=== PATIENT | female | born 1975 | race Caucasian/White ===

== ENCOUNTER 2017-12-05 22:26 | Emergency (ER) | payer SELFPAY ==
[2017-12-05] MEDS ORDERED: NACL 0.9% 1000 ML 1,000 ML IV ONE (22:50)
[2017-12-05] MEDS ORDERED: PEPCID IV ONE (22:51)
[2017-12-05] MEDS ORDERED: PROVENTIL IH ONE (22:51)
--- NOTE | 2017-12-05 22:56 | Emergency Department Report ---
ED Allergic Reaction HPI - General Chief complaint: Allergic Reaction Stated complaint: POSSIBLE ALLERGIC REACTION Time Seen by Provider: 12/05/17 22:46 Source: patient Mode of arrival: Ambulatory Limitations: Language Barrier - History of Present Illness Initial Comments: Patient is 42 years old female brought to the ER for evaluation of sudden onset of allergic reaction that is started while she was eating meats. Patient has been also stated that they found ants on the floor and it might be the reason for her allergic reaction. Patient presented with generalized itching and rash and difficulty breathing. Patient denied any difficulty swallowing. MD Complaint: allergic reaction, hives -: This evening Exposure: insect bite Symptoms: rash, itching, difficulty breathing Treatment Prior to Arrival: benadryl - Related Data Allergies Allergy/AdvReac Type Severity Reaction Status Date / Time codeine Allergy Itching Verified 12/05/17 22:44 ED Review of Systems ROS: Stated complaint: POSSIBLE ALLERGIC REACTION Other details as noted in HPI Comment: All other systems reviewed and negative Constitutional: denies: chills, fever Respiratory: shortness of breath. denies: cough, SOB with exertion, SOB at rest Cardiovascular: denies: chest pain, palpitations, dyspnea on exertion Gastrointestinal: denies: abdominal pain, nausea, vomiting, diarrhea, constipation, hematemesis, melena, hematochezia Genitourinary: denies: urgency, dysuria, frequency, hematuria Skin: rash, pruritus. denies: lesions, change in color, change in hair/nails Neurological: denies: headache, weakness, numbness, paresthesias, confusion ED Past Medical Hx - Past Medical History Previous Medical History?: No - Surgical History Past Surgical History?: No - Social History Smoking Status: Never Smoker Substance Use Type: None ED Physical Exam - General Limitations: Language Barrier General appearance: alert, anxious - Head Head exam: Present: atraumatic, normocephalic, normal inspection - Eye Eye exam: Present: normal appearance - ENT ENT exam: Present: normal exam, normal orophraynx, mucous membranes moist - Neck Neck exam: Present: normal inspection, full ROM. Absent: tenderness, meningismus, lymphadenopathy, thyromegaly - Respiratory Respiratory exam: Present: normal lung sounds bilaterally. Absent: respiratory distress, wheezes, rales, rhonchi, stridor, accessory muscle use, decreased breath sounds, prolonged expiratory - Cardiovascular Cardiovascular Exam: Present: regular rate, normal rhythm, normal heart sounds - GI/Abdominal GI/Abdominal exam: Present: soft, normal bowel sounds. Absent: distended, tenderness, guarding, rebound, rigid, organomegaly, mass, bruit, pulsatile mass , hernia - Extremities Exam Extremities exam: Present: normal inspection, full ROM, normal capillary refill - Back Exam Back exam: Present: normal inspection, full ROM. Absent: tenderness, CVA tenderness (R), CVA tenderness (L), paraspinal tenderness - Neurological Exam Neurological exam: Present: alert, oriented X3, CN II-XII intact, normal gait - Skin Skin exam: Present: warm, intact, rash, erythema. Absent: cyanosis, diaphoretic , urticaria, vesicles, petechiae, pallor, abrasion, ecchymosis ED Course Vital Signs 12/05/17 12/05/17 12/06/17 22:31 23:01 00:00 Temperature 97.8 F Pulse Rate 98 H Respiratory 18 Rate Blood Pressure 124/71 118/65 116/64 O2 Sat by Pulse 100 99 100 Oximetry 12/06/17 00:09 Temperature Pulse Rate Respiratory Rate Blood Pressure 116/64 O2 Sat by Pulse 100 Oximetry - Reevaluation(s) Reevaluation #1: 12/06/17 00:44 Patient stated that she is feeling much better. No itching and rash completely disappeared now. Patient denied any difficulty breathing or swallowing. Reevaluation #2: 12/06/17 03:35 Patient stated that she is feeling much better and she is ready to go home. I advised the patient will always her primary care physician in the next 2-3 days and to return to the ER if her symptoms get worse. ED Medical Decision Making - Lab Data Result diagrams: 12/05/17 22:57 12/05/17 22:57 Critical care attestation.: If time is entered above; I have spent that time in minutes in the direct care of this critically ill patient, excluding procedure time. ED Disposition Clinical Impression: Acute allergic reaction Disposition: DC-01 TO HOME OR SELFCARE Is pt being admited?: No Condition: Stable Instructions: Urticaria (ED), Allergies (ED) Referrals: PRIMARY CARE,MD [Primary Care Provider] - 3-5 Days
[2017-12-05 23:09] LABS: Mean Corpuscular HGB Conc 30 % (30-34); Platelet Count 282 K/mm3 (140-440); Red Blood Count 4.84 M/mm3 (3.65-5.03); Red Cell Distribution Width 19.3 % (13.2-15.2)
[2017-12-05 23:26] LABS: BUN/Creatinine Ratio 23; Blood Urea Nitrogen 16 mg/dL (7-17); Calcium 8.8 mg/dL (8.4-10.2); Hemolysis Index 25
[2017-12-05 23:37] LABS: Hematocrit 29.6 % (30.3-42.9); Hemoglobin 8.9 gm/dl (10.1-14.3); Mean Corpuscular Hemoglobin 18 pg (28-32); Mean Corpuscular Volume 62 fl (79-97)
[2017-12-06 01:19] LABS: Band Neutrophils # (Manual) 0.1 K/mm3; Basophils % (Manual) 0 % (0.0-1.8); Hypochromasia 2+; Platelet Estimate Consistent w Auto; Promyelocytes # (Manual) 0.1 K/mm3; Total Cells Counted 100
[2017-12-06 04:22] VITALS: BP 107/62
== END 2017-12-06 03:40 | disposition home or self-care (01) ==
LOC: ED 22:26
DX: T78.40XA Allergy, unspecified, initial encounter (principal); Z88.5 Allergy status to narcotic agent
CPT/HCPCS: 36415; 80048; 85007; 85025; 96374; 96375; 99284; J2930; J7030

== ENCOUNTER 2020-05-17 17:13 | Emergency (ER) | payer MEDICAID ==
[2020-05-17] MEDS ORDERED: ACETAMINOPHEN 325 MG TAB PO ONE (19:05)
[2020-05-17] MEDS ORDERED: SODIUM CHLORIDE 0.9% 1000 ML 1,000 ML IV ONE (19:05)
--- NOTE | 2020-05-17 19:18 | Event Note ---
ED Screening Note Date of service: 05/17/20 Time: 19:07 ED Screening Note: 44-year-old female presents to the emergency room with abdominal pain fever headache nausea weakness and body aches. Patient tested positive for Covid on Monday and seems to have gotten worse. This initial assessment/diagnostic orders/clinical plan/treatment(s) is/are subject to change based on patients health status, clinical progression and re- assessment by fellow clinical providers in the ED. Further treatment and workup at subsequent clinical providers discretion. Patient/guardian urged not to elope from the ED as their condition may be serious if not clinically assessed and managed. Initial orders include:
[2020-05-17] MEDS ORDERED: ACETAMINOPHEN 500 MG TAB PO ONE (19:27)
[2020-05-17] MEDS ORDERED: ONDANSETRON 4 MG/2 ML INJ IV ONE (19:27)
[2020-05-17] MEDS ORDERED: dexAMETHasone 20 MG/5 ML VIAL IV ONE (19:27)
--- NOTE | 2020-05-17 19:38 | Emergency Department Report ---
ED General Adult HPI - General Chief complaint: Abdominal Pain Stated complaint: STOMACH PAIN/FEVER PUI?: Yes Time Seen by Provider: 05/17/20 19:18 Source: patient, family, RN notes reviewed Mode of arrival: Ambulatory Limitations: Language Barrier (Patient request that family/friend translate. This provider is conversant in Romanian) - History of Present Illness Initial comments: The patient was evaluated in the emergency department for symptoms described in the history of present illness. He/she was evaluated in the context of the global COVID-19 pandemic, which necessitated consideration that the patient might be at risk for infection with the virus that causes COVID-19. Institutional protocols and algorithms that pertain to the evaluation of patients at risk for COVID-19 are in a state of rapid change based on in formation released by regulatory bodies including the CDC and federal and state organizations. These policies and algorithms were followed during the patient's care in the emergency department. Please note that these policies, procedures and recommendations changed on a rapid basis. During the entire history and physical examination, I had on complete personal protective equipment. During the entire history and physical examination, I am chaperoned by office electrician Justyna Gonsalez interpreter: [id number] Patient is a 44-year-old female. She is not known to myself previously. She was reportedly diagnosed with COVID-19 approximately 1 week ago. She was reportedly prescribed Levaquin, doxycycline, and pantoprazole for unclear reasons. She presents today with a complaint of myalgias, body aches, fatigue, headache, cough, abdominal pain, nausea. She reports the symptoms are new over the past 24 hours. There is no neck pain or neck stiffness. There is no diarrhea. There is no dysuria. She indicates her pain is constant. It worsens with physical exertion and decreases with rest. She and her printed circuit designer indicate that she was okay during her initial diagnosis, but that she clinically worsened over the past day or so. -: Gradual, days(s) Location: head, back, abdomen, left, right, upper extremity, lower extremity Consistency: constant Improves with: none Worsens with: none - Related Data Previous Rx's Medication Instructions Recorded Last Taken Type Ramona Root [Ramona] 250 mg PO QID PRN #30 capsule 05/17/20 Unknown Rx Metoclopramide [Reglan] 10 mg PO QID PRN #30 tablet 05/17/20 Unknown Rx Potassium Chloride 20 meq PO QDAY #10 liquid 05/17/20 Unknown Rx Allergies Allergy/AdvReac Type Severity Reaction Status Date / Time codeine Allergy Itching Verified 12/05/17 22:44 ED Review of Systems ROS: Stated complaint: STOMACH PAIN/FEVER Other details as noted in HPI Constitutional: fever, malaise, weakness Eyes: denies: vision change ENT: congestion Respiratory: cough Cardiovascular: denies: chest pain Gastrointestinal: abdominal pain, nausea Genitourinary: denies: dysuria Musculoskeletal: back pain Neurological: weakness ED Past Medical Hx - Past Medical History Previous Medical History?: Yes Additional medical history: Covid positive, Abd pain - Surgical History Past Surgical History?: Yes Additional Surgical History: right leg vein surgeries - Social History Smoking Status: Never Smoker Substance Use Type: Prescribed - Medications Home Medications: Home Medications Medication Instructions Recorded Confirmed Last Taken Type Ramona Root [Ramona] 250 mg PO QID PRN #30 capsule 05/17/20 Unknown Rx Metoclopramide [Reglan] 10 mg PO QID PRN #30 tablet 05/17/20 Unknown Rx Potassium Chloride 20 meq PO QDAY #10 liquid 05/17/20 Unknown Rx ED Physical Exam - General Limitations: Language Barrier General appearance: alert, anxious - Head Head exam: Present: atraumatic, normocephalic - Eye Eye exam: Present: normal appearance, EOMI. Absent: nystagmus - ENT ENT exam: Present: normal exam, normal orophraynx, mucous membranes moist, normal external ear exam - Neck Neck exam: Present: normal inspection, full ROM. Absent: tenderness, meningismus - Respiratory Respiratory exam: Present: normal lung sounds bilaterally. Absent: respiratory distress, wheezes, rales, rhonchi, stridor - Cardiovascular Cardiovascular Exam: Present: normal rhythm, tachycardia, normal heart sounds. Absent: systolic murmur, diastolic murmur, rubs, gallop - GI/Abdominal GI/Abdominal exam: Present: soft, normal bowel sounds. Absent: distended, tenderness, guarding, rebound, rigid, pulsatile mass - Extremities Exam Extremities exam: Present: normal inspection, full ROM, other (2+ pulses noted in the bilateral upper and lower extremities. There is no palpable cord. negative Homans sign. Muscular compartments are soft. The pelvis is stable.). Absent: pedal edema, calf tenderness - Back Exam Back exam: Present: normal inspection, full ROM. Absent: tenderness, CVA tenderness (R), CVA tenderness (L), paraspinal tenderness, vertebral tenderness - Neurological Exam Neurological exam: Present: alert, normal gait, other (No facial droop. Tongue midline. Extraocular movements intact bilaterally. Facial sensation intact to light touch in V1, V2, V3 distribution bilaterally. 5 and a 5 strength in 4 extremities. Sensation intact to light touch in 4 extremities.) - Psychiatric Psychiatric exam: Present: anxious - Skin Skin exam: Present: warm, dry, intact, normal color. Absent: rash ED Course Vital Signs 05/17/20 05/17/20 17:53 19:48 Temperature 100.1 F H Pulse Rate 119 H Respiratory 22 14 Rate Blood Pressure 122/76 O2 Sat by Pulse 98 97 Oximetry - Reevaluation(s) Reevaluation #1: 05/17/20 19:40 Differential diagnosis, including but not limited to: COVID-19, pneumonia, urinary tract infection, intra-abdominal infection Assessment and plan: 44-year-old female with low-grade fever, tachycardia, nonspecific constitutional symptoms and abdominal pain, during the COVID-19 pandemic. She states that she was feeling okay initially, but worsened over the past 24 hours. Suspect natural history of Covid. However, given that she says that she has upper abdominal pain, states that she got worse, has a fever and tachycardia, we will check appropriate laboratory studies, x-ray the chest, urinalysis, and CT scan of the abdomen pelvis. I extensively counseled the patient and her friend/printed circuit designer that she is most likely experiencing the natural history of COVID-19. Maintain patient on isolation precautions Reevaluation #2: 05/17/20 21:30 Tachycardia resolved. Heart rate [address] scan of the abdomen pelvis reviewed and appreciated. There is no lower abdominal pain or tenderness. All of her pain is epigastric and upper abdominal region. X-ray of the chest, and CT scan of the abdomen pelvis suggest bilateral pneumonia, likely viral, likely consistent with patient's reported history of COVID-19. After reviewing CT scan of the abdomen pelvis, I went back and spoke to the patient using color repairer #[id number]. Patient reports that she had uterine artery embolization done locally, by clinical education consultant in [place], approximately a month and a half ago. Thus, these postsurgical findings are expected. I have counseled the patient on the natural history of COVID-19. Apparently, she was recently prescribed doxycycline, Levaquin, and pantoprazole by an outpatient physician. She may continue these therapies. She is not had any active vomiting while here in the emergency room. I had extensive discussion using the security infrastructure engineer with the patient, her significant other. They have verbalized understanding. I have described the expected natural history of COVID-19. We also talked about her hypokalemia In addition, patient able to ambulate on room air for 5 minutes, without desaturation. Heart rate currently 92 bpm. O2 sat 97% on room air at this time. 05/17/20 21:36 ED Medical Decision Making - Lab Data Result diagrams: 05/17/20 19:46 05/17/20 19:46 Vital Signs 05/17/20 17:53 Temperature 100.1 F H Pulse Rate 119 H Respiratory 22 Rate Blood Pressure 122/76 O2 Sat by Pulse 98 Oximetry - Radiology Data Radiology results: pending, report reviewed, image reviewed Print Report Referring Physician: KHARI OBREGON Patient Name: JARED FARRIS Date of : 1986-01-02 Sex: Female Report Date: 2020-05-17 Report Status: Finalized Findings [address] [address] XRay Report Signed Patient: JARED FARRIS MR#: [id number] : 01/02/1986 Acct:[id number] Age/Sex: 34 / F ADM Date: 05/17/20 Loc: ED Attending Dr: Ordering Physician: KHARI OBREGON MD Date of Service: 05/17/20 Procedure(s): XR wrist 2V LT Accession Number(s): [id number] cc: KHARI OBREGON MD Fluoro Time In Minutes: LEFT WRIST 2 VIEW(S) INDICATION / CLINICAL INFORMATION: left wrist pain COMPARISON: None available. FINDINGS: BONES / JOINT(S): No acute fracture or subluxation. No significant arthritis. Carpal arcs are intact. SOFT TISSUES: Mild generalized soft tissue swelling of the distal forearm. ADDITIONAL FINDINGS: None. Signer Name: Erwin Gooden MD Signed: 05/17/2020 7:56 PM Workstation Name: [id number] Transcribed By: Dictated By: ERWIN GOODEN Electronically Authenticated By: ERWIN GOODEN Signed Date/Time: 05/17/201955 DD/ 54 TD/TT: Print Report Referring Physician: KAHRI OBREGON Patient Name: ZIA TREVIÑO Date of : 1975 Sex: Female Report Date: 2020-05-17 Report Status: Finalized Findings [facility] [address] [place] [address] Cat Scan Report Signed Patient: ZIA TREVIÑO V MR#: [id number] : 1975 Acct:[id number] Age/Sex: 44 / F ADM Date: 05/17/20 Loc: ED Attending Dr: Ordering Physician: KHARI OBREGON MD Date of Service: 05/17/20 Procedure(s): CT abdomen pelvis w con Accession Number(s): [id number] cc: KHARI OBREGON MD CT ABDOMEN AND PELVIS WITH CONTRAST INDICATION / CLINICAL INFORMATION: acute abdominal pain, covid +. TECHNIQUE: Axial CT images were obtained through the abdomen and pelvis after IV contrast. All CT scans at this location are performed using CT dose reduction for ALARA by means of automated exposure control. COMPARISON: None available. FINDINGS: LOWER CHEST: Bilateral groundglass consolidations with peripheral predominance. LIVER: Multiple bilobar hypoattenuating lesions of the hepatic parenchyma, the largest measuring 1.1 cm in the left hepatic lobe (series 2 image 34). GALLBLADDER: Cholecystectomy. BILE DUCTS: No significant abnormality. PANCREAS: No significant abnormality. SPLEEN: No significant abnormality. ADRENALS: No significant abnormality. RIGHT KIDNEY / URETER: No significant abnormality. LEFT KIDNEY / URETER: No significant abnormality. STOMACH / SMALL BOWEL: No significant abnormality. COLON: Colonic diverticulosis without evidence of diverticulitis. APPENDIX: No significant abnormality. PERITONEUM: No free fluid. No free air. No fluid collection. LYMPH NODES: No significant adenopathy. AORTA / ARTERIES: No significant abnormality. IVC / VEINS: Postsurgical findings in the right retroperitoneum likely represent coiling of the gonadal vein. URINARY BLADDER: No significant abnormality. REPRODUCTIVE ORGANS: Grossly enlarged and heterogeneous uterus measuring 10.8 x 10.5 cm with multifocal lobular lesions. The largest heterogeneous lesion measures 8.2 x 8.3 cm. There are 2 simple left ovarian cyst measuring approximately 2.6 and 3.0 cm speculated. ADDITIONAL FINDINGS: None. SKELETAL SYSTEM: Multilevel degenerative changes are noted of the spine. No aggressive osseous lesions. MPRESSION: 1. Grossly abnormal heterogeneous and enlarged uterus measuring 10.8 x 10.5 cm with multifocal lobular lesions. The largest heterogeneous lesion measures 8.2 x 8.3 cm. Clinical correlation for recent surgery or embolization is recommended given the embolic coil material in the area of the right gonadal vein. These lesions may represent uterine fibroids that have recently been treated. If there is no clinical history, further workup with MRI with and without contrast is recommended. 2. Pulmonary findings consistent with atypical versus viral infectious process. 3. Simple left ovarian cyst likely represent dominant follicles. 4. Cholecystectomy. Signer Name: Erwin Gooden MD Signed: 05/17/2020 9:05 PM Workstation Name: [id number] Transcribed By: Dictated By: ERWIN GOODEN Electronically Authenticated By: ERWIN GOODEN Signed Date/Time: 05/17/202104 DD/ 50 TD/TT: Critical care attestation.: If time is entered above; I have spent that time in minutes in the direct care of this critically ill patient, excluding procedure time. ED Disposition Clinical Impression: Acute abdominal pain, History of 2019 novel coronavirus disease (COVID-19), Hypokalemia Disposition: DC-01 TO HOME OR SELFCARE Is pt being admited?: No Does the pt Need Aspirin: No Condition: Good Instructions: Abdominal Pain (ED), COVID-19, Abdominal Pain, Adult Additional Instructions: as we discussed, the patient most likely has novel coronavirus/COVID. the symptoms of COVID will typically persist 10 to 14 days. There is no cure at this time for COVID. Please make certain to self isolate and self quarantine, follow-up with an outpatient primary care doctor within the next 3 to 5 days, wash hands with soap and water frequently, thoroughly and often, patient may take the prescribed medications as needed and directed. Advance diet and drink plenty of fluids as tolerated. Avoid interactions with the very elderly, very young, and those with chronic medical conditions. Do not take metformin medication for the next 2 days, if patient takes this medication. Return to the emergency room right away with new pain, worsening pain, migration of pain, projectile vomiting, change in mental status, confusion, inability to tolerate liquid feeds, new, worsened or different symptoms not present on the initial emergency room evaluation. Patient may continue the outpatient medications that were prescribed for her, including Levaquin, pantoprazole, and doxycycline. Recommend the patient di scontinue ibuprofen consumption, and take Tylenol/acetaminophen bmry-duc-fiehvaz, 650 mg by mouth, every 4-6 hours as needed for fever and/or pain. Maximum daily dose of Tylenol to not exceed 3 g per 24 hours. Take the potassium supplementation as directed, and patient may take the prescribed nausea medications as needed and directed. Patient may expect to have loss of taste, loss of smell, decreased appetite, malaise, fatigue, headache, cough shortness of breath, abdominal cramping, and diarrhea. CT scan of the abdomen pelvis demonstrated nonemergent incidental findings, such as nonspecific lesions in the liver, and nonspecific findings in the uterus and reproductive organs, consistent with patient's recent gynecologic intervention. Recommend that patient have a primary care doctor contact the medical records department to obtain copies of laboratory studies and CT scan results to follow- up on nonemergent incidental findings. Recommend the patient have her clinical education consultant of record contact the medical records department to obtain copies of CT scan results to follow-up on nonemergent incidental findings. We recommend follow-up with your clinical education consultant within the next week. We r ecommend follow-up with your primary care doctor within the next week. mohit comentamos, es muy probable que el paciente tenga un nuevo coronavirus / COVID. los sntomas de COVID generalmente persisten de 10 a 14 varma. No existe abdiaziz en hoang momento para COVID. Asegrese de aislarse y ponerse en cuarentena, nestor un seguimiento con un mdico de atencin primaria para pacientes ambulatorios dentro de los prximos 3 a 5 varma, lvese las julio con agua y jabn con frecuencia, a fondo y con frecuencia, el paciente puede moraima los medicamentos recetados segn sea necesario y se le indique. Avance en la dieta y beatriz muchos lquidos segn los tolere. Evite las interacciones con personas muy mayores, muy jvenes y con enfermedades crnicas. No tome el medicamento de metformina milagros los prximos 2 varma, si el paciente carmita hoang medicamento. Regrese a la kareen de emergencias de inmediato con dolor nuevo, empeoramiento del dolor, migracin del dolor, vmitos en proyectil, cambio en el estado mental, confusin, incapacidad para tolerar alimentos lquidos, sntomas nuevos, empeorados o diferentes que no estn presentes en la evaluacin inicial de la kareen de emergencias. El paciente puede continuar con los medicamentos ambulatorios que le recetaron, incluidos Levaquin, pantoprazol y doxiciclina. Recomiende al paciente que interrumpa el consumo de ibuprofeno y tome Tylenol / acetaminofeno sin receta, 650 mg por va oral, cada 4-6 horas, segn sea necesario para la fiebre y / o el dolor. La dosis mxima diaria de Tylenol no debe exceder los 3 g por 24 horas. [place] el suplemento de potasio segn las indicaciones y el paciente puede moraima los medicamentos recetados para las nuseas segn sea necesario y indicado. El paciente puede esperar tener prdida del gusto, prdida del olfato, disminucin del apetito, malestar, fatiga, dolor de erma, tos, dificultad para respirar, calambres abdominales y diarrea. La tomografa computarizada de la pelvis del abdomen mostr hallazgos inci dentales que no justino de emergencia, mohit lesiones inespecficas en el hgado y hallazgos inespecficos en el tero y los rganos reproductores, compatibles con la reciente intervencin ginecolgica de la paciente. Recomiende al paciente que un mdico de atencin primaria se comunique con el departamento de registros mdicos para obtener copias de los estudios de laboratorio y los resultados de la tomografa computarizada para realizar un seguimiento de los hallazgos incidentales que no edinson de emergencia. Recomiende a la paciente que fuentes gineclogo de registro se comunique con el departamento de registros mdicos para obtener copias de los resultados de la tomografa computarizada para realizar un seguimiento de los hallazgos incidentales que no edinson de emergencia. Recomendamos hacer un seguimiento con fuentes gineclogo dentro de la prxima semana. Recomendamos hacer un seguimiento con fuentes mdico de atencin primaria dentro de la prxima semana. Referrals: FRANDY RILEY MD [Primary Care Provider] - 7-10 days Forms: Work/School Release Form(ED) Print Language: NAMIBIAN
[2020-05-17 20:05] LABS: Hematocrit 32.4 % (30.3-42.9); Hemoglobin 10.7 gm/dl (10.1-14.3)
[2020-05-17 20:16] LABS: Alanine Aminotransferase 43 units/L (7-56); Albumin 3.9 g/dL (3.9-5); Blood Urea Nitrogen 7 mg/dL (7-17); Calcium 8.8 mg/dL (8.4-10.2); Hemolysis Index 2
[2020-05-17 20:19] LABS: BUN/Creatinine Ratio 12
[2020-05-17] MEDS ORDERED: POTASSIUM CHLORIDE ER 20 MEQ TAB PO ONE (20:21)
--- NOTE | 2020-05-17 20:21 | XRay Report ---
CHEST 1 VIEW INDICATION / CLINICAL INFORMATION: cough. COMPARISON: None available. FINDINGS: SUPPORT DEVICES: None. HEART / MEDIASTINUM: No significant abnormality. LUNGS / PLEURA: Mild patchy bilateral pulmonary opacities. No pleural effusion. No pneumothorax. ADDITIONAL FINDINGS: Cholecystectomy clips. IMPRESSION: 1. Patchy bilateral pulmonary opacities likely represent atypical versus viral infectious process. Signer Name: Erwin Wilkes MD Signed: 05/17/2020 8:17 PM Workstation Name: [id number]
[2020-05-17 20:33] LABS: Bilirubin,Urine NEG (Negative); Blood,Urine NEG (Negative); Color,Urine Straw (Yellow); Mucus,Urine FEW /HPF; RBC,Urine < 1.0 /HPF (0.0-6.0); Urobilinogen,Urine < 2.0 mg/dL (<2.0)
[2020-05-17 20:40] LABS: WBC,Urine < 1.0 /HPF (0.0-6.0)
--- NOTE | 2020-05-17 21:10 | Cat Scan Report ---
CT ABDOMEN AND PELVIS WITH CONTRAST INDICATION / CLINICAL INFORMATION: acute abdominal pain, covid +. TECHNIQUE: Axial CT images were obtained through the abdomen and pelvis after IV contrast. All CT scans at this location are performed using CT dose reduction for ALARA by means of automated exposure control. COMPARISON: None available. FINDINGS: LOWER CHEST: Bilateral groundglass consolidations with peripheral predominance. LIVER: Multiple bilobar hypoattenuating lesions of the hepatic parenchyma, the largest measuring 1.1 cm in the left hepatic lobe (series 2 image 34). GALLBLADDER: Cholecystectomy. BILE DUCTS: No significant abnormality. PANCREAS: No significant abnormality. SPLEEN: No significant abnormality. ADRENALS: No significant abnormality. RIGHT KIDNEY / URETER: No significant abnormality. LEFT KIDNEY / URETER: No significant abnormality. STOMACH / SMALL BOWEL: No significant abnormality. COLON: Colonic diverticulosis without evidence of diverticulitis. APPENDIX: No significant abnormality. PERITONEUM: No free fluid. No free air. No fluid collection. LYMPH NODES: No significant adenopathy. AORTA / ARTERIES: No significant abnormality. 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 URINARY BLADDER: No significant abnormality. REPRODUCTIVE ORGANS: Grossly enlarged and heterogeneous uterus measuring 10.8 x 10.5 cm with multifoc al lobular lesions. The largest heterogeneous lesion measures 8.2 x 8.3 cm. There are 2 simple left ovarian cyst measuring approximately 2.6 and 3.0 cm speculated. ADDITIONAL FINDINGS: None. SKELETAL SYSTEM: Multilevel degenerative changes are noted of the spine. No aggressive osseous lesion s. IMPRESSION: 1. Grossly abnormal heterogeneous and enlarged uterus measuring 10.8 x 10.5 cm with multifocal lobula r lesions. The largest heterogeneous lesion measures 8.2 x 8.3 cm. Clinical correlation for recent fuentes rgery or embolization is recommended given the embolic coil material in the area of the right gonadal vein. These lesions may represent uterine fibroids that have recently been treated. If there is no c linical history, further workup with MRI with and without contrast is recommended. 2. Pulmonary findings consistent with atypical versus viral infectious process. 3. Simple left ovarian cyst likely represent dominant follicles. 4. Cholecystectomy. Signer Name: Erwin Wilkes MD Signed: 05/17/2020 9:05 PM Workstation Name: [id number]
[2020-05-17 21:35] VITALS: BP 123/74
== END 2020-05-17 22:10 | disposition home or self-care (01) ==
LOC: ED 17:13
DX: E87.6 Hypokalemia (principal); U07.1 COVID-19; Z88.4 Allergy status to anesthetic agent
CPT/HCPCS: 36415; 71045; 74177; 80053; 81001; 82550; 83690; 83735; 84703; 85014; 85018; 85049; 96361; 96374; 99285; J7030; Q9967